=== PATIENT | female | born 1965 | race Caucasian/White ===

== ENCOUNTER 2023-03-15 12:00 | Emergency (ER) | payer MEDICAID ==
[~2023-03-15] VITALS: Ht 162.6 cm; Wt 81.8 kg
[2023-03-15 12:08] VITALS: BP 208/105
[2023-03-15] MEDS ORDERED: AMOX-117 PO ×2 (12:27)
[2023-03-15] MEDS ORDERED: oxymetazoline 15 ML nasal spray NS ONE (12:30)
== END 2023-03-15 14:13 | disposition home or self-care (01) ==
LOC: ER 12:00
DX: R04.0 Epistaxis (principal); Z88.2 Allergy status to sulfonamides; Z88.8 Allergy status to other drugs, medicaments and biological substances
CPT/HCPCS: 99282